=== PATIENT | female | born 1950 | race Two or more races ===

== ENCOUNTER → 2016-09-10 | Day surgery (SDC) | payer MEDICARE, MEDICAID ==
[~2016-09-10] VITALS: Ht 160 cm; Wt 59.0 kg
[2016-09-10] VITALS (13 sets, daily range): BP systolic 106–119; BP diastolic 57–74
[~2016-09-10] MED LIST: ATORVASTATIN CA20 MG ORAL; Betadine 10% Oint 15gm TOPIC ONE; Bupivacaine 0.5% Inj 30 ml vial INJ ONE; Dexamethasone 4mg/ml vial ONE; DiphenhydrAMINE 50mg/ml Inj IVP PRN; Hydromorphone 0.5mg/0.5ml inj IVP PRN; Ketorolac 30mg Inj IV PRN; LR 1000ml 1,000 ML IVLG SCH; LR 1000ml ONE; Labetalol 5mg/ml 20ml vial IV PRN; Lidocaine 1% MPF 10mg/ml 5ml ONE; Lidocaine 1% Plain 30 ml INJ ONE; Midazolam 2mg/2ml Inj ONE; NS Irrig 1000ml ONE; NS Irrig 2000ml IRRIG ONE; SYNTHROID75 MCG ORAL; Sterile Water Irrig 1000ml IRRIG ONE; VITAMIN D1000 UNI1 ORAL; fentaNYL 100 mcg/2 mL IV ONE; fentaNYL 100 mcg/2 mL IV PRN
--- NOTE | 2016-09-10 07:29 | Immediate Post-Op Evaluation ---
Immediate Post-Op Evalulation Immediate Post-Op Evalulation Procedure: Right foot bunionectomy and 5th hammertoe correction Date of Evaluation: Sep 10, 2016 Time of Evaluation: 09:29 IV Fluids: 700 Blood Products: 0 Estimated Blood Loss: min Urinary Output: 0 Blood Pressure Systolic: 117 Blood Pressure Diastolic: 60 Pulse Rate: 62 Respiratory Rate: 15 O2 Sat by Pulse Oximetry: 100 Temperature (Fahrenheit): 97.7 Pain Score (1-10): 0 Nausea: No Vomiting: No Complications 0 Patient Status: awake, reacts, patent, none Hydration Status: adequate Drug: Ancef 1g Given Within 1 Hr of Incision: Yes Time Given: 07:50 LUISA JEWELL M.D. Sep 10, 2016 07:29
--- NOTE | 2016-09-10 07:29 | Anethesia Preoperative Eval ---
Anesthesia Pre-op PMH/ROS General Date of Evaluation: Sep 10, 2016 Anesthesiologist: Rubén ASA Score: ASA 2 Mallampati Score Class I : Soft palate, uvula, fauces, pillars visible Class II: Soft palate, uvula, fauces visible Class III: Soft palate, base of uvula visible Class IV: Only hard plate visible Mallampati Classification: Class II Surgeon: Ranjeet Diagnosis: Right foot bunion and 5th hammertoe Surgical Procedure: Right foot bunionectomy and 5th hammertoe correction Anesthesia History: none Family History: no anesthesia problems Allergies: Coded Allergies: SULFA (SULFONAMIDE ANTIBIOTICS) (Verified Allergy, Intermediate, Rash, 09/09) TETRACYCLINE (Verified Allergy, Intermediate, "red spots", 09/09/16) Medications: see eMAR Past Medical History Cardiovascular: Reports: arrhythmia - h/o fib s/p ablation 5 years ago; stable , other - HLD, Denies: CAD, HTN, MS, valve dz Pulmonary: Denies: COPD, DINORAH, asthma, other Gastrointestinal/Genitourinary: Denies: CRI, ESRD, GERD, other Neurologic/Psychiatric: Denies: CVA, TIA, dementia, depression/anxiety, other Endocrine: Reports: hypothyroidism, Denies: DM, other, steroids HEENT: Denies: [place] (L), [place] (R), cataract (L), cataract (R), glaucoma, other Hematology/Immune: Denies: DVT, anemia, bleeding disorder, other Musculoskeletal/Integumentary: Denies: DDD, DJD, OA, RA, edema, other PSxH Narrative: ARON, thyroidectomy, left foot bunionectomy Anesthesia Pre-op Phys. Exam Physician Exam Last Vital Signs Date Time Temp Pulse Resp B/P Pulse Ox O2 Delivery O2 Flow Rate FiO2 09/10/16 06:22 97.3 60 18 114/74 97 Room Air Constitutional: NAD Cardiovascular: RRR Respiratory: CTA Airway Exam Mallampati Score: Class II MO: full ROM: full Anesthesia Pre-op A/P Labs see chart Studies Pre-op Studies: EKG - sr Risk Assessment & Plan Assessment: ASa II Plan: MAC, patient reports tht she will be taking [facility] service home and that her daughter will be with her postop Status Change Before Surgery: No Pre-Antibiotics Drug: Ancef 1g Given Within 1 Hr of Incision: Yes Time Given: 07:50 LUISA JEWELL M.D. Sep 10, 2016 07:29
--- NOTE | 2016-09-10 07:30 | 48 Hour Post Anesthesia Eval ---
Post Anesthesia Evaluation Procedure: Right foot bunionectomy and 5th hammertoe correction Date of Evaluation: Sep 10, 2016 Blood Pressure Systolic: 121 0: 72 Pulse Rate: 71 Respiratory Rate: 16 O2 Sat by Pulse Oximetry: 99 Airway: patent Nausea: No Vomiting: No Pain Intensity: 0 Hydration Status: adequate Cardiopulmonary Status: at bseline Mental Status/LOC: patient returned to baseline Post-Anesthesia Complications: 0 Follow-up care needed: ready to discharge LUISA JEWELL M.D. Sep 10, 2016 07:30
--- NOTE | 2016-09-10 07:41 | Pre-Procedure Note/Attestation ---
Pre-Procedure Note/Attestation Complete Prior to Procedure Planned Procedure: right Procedure Narrative: Bunionectomy osteotomy right foot Hammertoe correction fifth right digit [place] bunionectomy right foot Indications for Procedure Pre-Operative Diagnosis: Hallux Valgus right Hammertoe deformity fifth right digit [place] bunion right foot Attestation I attest that I discussed the nature of the procedure; its benefits; risks and complications; and alternatives (and the risks and benefits of such alternatives ), prior to the procedure, with the patient (or the patient's legal business development representative). I attest that, if there was a reasonable possibility of needing a blood transfusion, the patient (or the patient's legal business development representative) was given the [place] [employer] standardized written summary, pursuant to the Alberto Myrna Blood Safety Act ([place] Health and Safety Code # 1645, as amended). I attest that I re-evaluated the patient just prior to the surgery and that there has been no change in the patient's H&P, except as documented below: CRISTIAN WALSH Sep 10, 2016 07:41
--- NOTE | 2016-09-10 09:26 | Brief Operative Note ---
Immediate Post Operative Note Operative Note Pre-op Diagnosis: Hallux Valgus right Hammertoe deformity fifth right digit [place] bunion right foot Procedure: Bunionectomy osteotomy right foot Hammertoe correction fifth right digit [place] bunionectomy right foot Post-op Diagnosis: same as pre-op Surgeon: Ranjeet Anesthesiologist: Mellisa Anesthesia: MAC Specimen: yes Condition: stable Estimated Blood Loss: none Drains: none Implant(s) used?: Yes CRISTIAN WALSH Sep 10, 2016 09:26
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
--- NOTE | 2016-09-10 17:17 | Operative Note - Dictated ---
DATE OF OPERATION: 09/10/2016 SURGEON: Sterling Pollack D.P.M. ANESTHESIOLOGIST: Leann Pak M.D. ANESTHESIA: MAC. PREOPERATIVE DIAGNOSES: 1. Hallux abductovalgus with bunion deformity, right foot. 2. Hammertoe deformity, fifth right digit. 3. Tailor bunion, right foot. POSTOPERATIVE DIAGNOSES: 1. Hallux abductovalgus with bunion deformity, right foot. 2. Hammertoe deformity, fifth right digit. 3. Tailor bunion, right foot. PROCEDURES PERFORMED: 1. Modified [place] bunionectomy, right foot. 2. Abdirizak osteotomy, right foot. 3. Arthroplasty, fifth right proximal interphalangeal joint. 4. Tailor bunionectomy, right foot. DESCRIPTION OF THE OPERATION: The patient was brought to the operating room and was placed on the operating room table in the supine position. Intravenous sedation was administered by the anesthesiologist. Local anesthesia consisting of 0.5% Marcaine plain total of 20 mL was administered to the right foot. An ankle tourniquet was applied to the right lower extremity. The foot was prepped and draped in the usual sterile manner. An Esmarch bandage was utilized to exsanguinate the blood and the right ankle tourniquet was inflated to 250 mmHg. Attention was directed to the right hallux where an approximately 6 cm dorsal linear skin incision was centered over the first metatarsophalangeal joint. The incision was deepened utilizing sharp and blunt dissection with care being taken to cauterize and ligate all bleeders. At the level of the capsule, an inverted L type capsulotomy was performed. The capsule was reflected medially and laterally and the head of the first metatarsal was resected. At this point, utilizing a sagittal saw, the medial eminence of the first metatarsal head was resected in total. The remaining bone was rasped smooth. The wound was copiously flushed utilizing sterile saline. At this point, the incision was dissected down distally at the level of the proximal phalanx. Utilizing a sharp dissection, the periosteum of the proximal phalanx shaft was reflected medially and laterally. Utilizing a sagittal saw, a medial wedge was removed with care being taken to leave the lateral cortex intact. The osteotomy was reduced. Using 2 guide holes proximal and distal to the osteotomy were performed with a drill. At this point, an 8 x 8 mm staple was inserted to fixate the osteotomy. The wound was copiously flushed utilizing sterile saline. At this point, the capsule was reapproximated utilizing 3-0 Vicryl in a simple interrupted type stitch. Subcutaneous tissue was then reapproximated utilizing 4-0 Vicryl in a simple and deep buried knot type stitch. The skin was then reapproximated utilizing 4-0 nylon in a simple interrupted type stitch. Attention was then directed to the fifth digit. An approximately 4 cm dorsal linear skin incision was centered over the proximal interphalangeal joint. The incision was deepened utilizing sharp and blunt dissection with care being taken to cauterize and ligate all bleeders. At the level of the joint, a transverse tenotomy was performed. The extensor tendon was reflected proximally and the head of the proximal phalanx was exposed. The collateral ligaments were severed. Utilizing a sagittal saw, the head of the proximal phalanx was resected in total. The remaining bone was rasped smooth. The wound was copiously flushed utilizing sterile saline. The incision was then traced approximately over the lateral aspect of the fifth metatarsophalangeal joint. It was deepened down to the level of the capsule. A linear capsulotomy was performed and the head of the fifth metatarsal was exposed. Utilizing a sagittal saw, the lateral eminence of the head of the fifth metatarsal was resected in total. The remaining bone was rasped smooth. The wound was copiously flushed utilizing sterile saline. The capsule was then reapproximated utilizing 3-0 Vicryl in a simple interrupted type stitch. The subcutaneous tissue was then reapproximated utilizing 4-0 Vicryl in a buried knot type stitch. The skin was then reapproximated utilizing 4-0 nylon in a simple interrupted type stitch. The wound was dressed utilizing an Adaptic, 4 x 4 gauze, and 3 inch Keren. The right ankle tourniquet was deflated and vascular supply was noted to the right foot. The patient tolerated the procedure well and left the operating room to recovery room with all vital signs stable. Sterling Pollack D.P.M. DR: MAHAD JOB#: [id number] CC:
--- NOTE | 2016-09-10 19:38 | History and Physical Report ---
DATE OF ADMISSION: 09/10/2016 HISTORY OF PRESENT ILLNESS: This is a 65-year-old white female, who is admitted today for an outpatient right foot surgery. The patient has been known to me from many years. She underwent a bunionectomy of her left foot 20 years ago. She recently started to develop pain from her right foot. She has been attempting to wear wider shoe gear and to pad her foot, but conservative care failed to alleviate her symptoms. PAST MEDICAL HISTORY: Remarkable for hypothyroidism and osteoarthritis. MEDICATIONS: Synthroid. ALLERGIES: Sulfa and tetracycline. PHYSICAL EXAMINATION: PODIATRIC: The dorsalis pedis and posterior tibial arteries are equally palpable measuring 2/4 bilaterally. The capillary filling time is less than 4 seconds to all digits bilaterally. Homans sign is negative. Minimum varicosities are noted in bilateral lower extremity. NEUROLOGICAL: Reveals intact reflexes, Achilles and patellar measuring 2/4, equal and symmetrical bilaterally. Sensation, vibration, and proprioception are all intact in bilateral lower extremity. Babinski is negative. Clonus is absent. MUSCULOSKELETAL: Reveals hallux abductovalgus with bunion deformity of the right foot. There is a tailor bunion noted as well on the right foot and known reducible hammertoe deformity of the fifth right digit is present. Range of motion of all the joints is normal and pain-free. No crepitation is noted. No other skeletal deformities are noted bilaterally. DERMATOLOGICAL: Reveals intact skin without lesions or ulcerations. All nails are present and healthy bilaterally. A scar is noted on the left foot from prior bunionectomy. ASSESSMENT: 1. Hallux abductovalgus with bunion deformity, right foot. 2. Hammertoe deformity, fifth right digit. 3. Tailor bunion, right foot. PLAN: The patient is admitted today for an outpatient correction of above deformities. Postoperative medications were given to the patient. Postoperative instructions were reviewed with the patient and the patient elected to proceed with surgery. Sterling Pollack D.P.M. DR: MAHAD JOB#: [id number] CC:
== END | disposition home or self-care (01) ==
LOC: SUR 05:38
DX: M20.11 Hallux valgus (acquired), right foot (principal); M21.611 Bunion of right foot; M20.41 Other hammer toe(s) (acquired), right foot; M21.621 Bunionette of right foot; I25.10 Atherosclerotic heart disease of native coronary artery without angina pectoris; E03.9 Hypothyroidism, unspecified; E78.5 Hyperlipidemia, unspecified; M19.90 Unspecified osteoarthritis, unspecified site; Z88.3 Allergy status to other anti-infective agents; Z88.2 Allergy status to sulfonamides
CPT/HCPCS: 28110; 28285; 28299; 73630; J0690; J1100; J2001; J2250; J2405; J3010; J3490; J7120; 94003; 94150